=== PATIENT | male | born 1965 | race Caucasian/White ===

== ENCOUNTER 2017-10-03 23:19 | Emergency (ER) | payer OTHER, BC ==
[2017-10-03] MEDS ORDERED: Sodium Chloride 0.9% 10 ML Syringe FLUSH PRN (23:26)
[2017-10-03] MEDS ORDERED: oxyCODONE 5 MG Tab PO ONE (23:26)
[2017-10-03] MEDS ORDERED: Ondansetron 4 MG/2 ML SDV IVPUSH ONE (23:29)
[2017-10-03] MEDS ORDERED: Sodium Chloride 0.9% 1,000 ML IV SCH (23:45)
--- NOTE | 2017-10-04 00:30 | EDM.PDOC ---
ED HPI GENERAL MEDICAL PROBLEM - General Chief Complaint: Upper Extremity Injury/Pain Stated Complaint: INJURY TO SHOULDER FROM FALL Time Seen by Provider: 10/03/17 23:25 Source of Information: Reports: Patient History Limitations: Reports: No Limitations - History of Present Illness INITIAL COMMENTS - FREE TEXT/NARRATIVE: Patient is a 52 year old man who slipped and fell while opening his pickup door while getting into it just before coming to the ED. He has a lot of pain in his left shoulder and it hurts to touch or move it. His pain is bad enough that he is getting nauseated some. He has never injured this shoulder in the past. He has good function and sensation in his left arm and hand but he has 8/10 pain in the left shoulder. Onset: Today Onset Date: 10/03/17 Onset Time: 00:30 Duration: Minutes: (30), Constant Location: Reports: Upper Extremity, Left Quality: Reports: Ache, Throbbing Severity: Severe Improves with: Reports: Immobilization Worsens with: Reports: Movement Context: Reports: Trauma (Fell on ice and hit left shoulder on his truck door and the ground.) Associated Symptoms: Reports: Nausea/Vomiting - Related Data Allergies Allergy/AdvReac Type Severity Reaction Status Date / Time morphine Allergy Rash Verified 02/08/16 10:06 Home Meds: Home Meds Lisinopril [Lisinopril] 20 mg PO DAILY 04/04/15 [History] Pravastatin [Pravachol] 20 mg PO DAILY 04/04/15 [History] SitaGLIPtin [Januvia] 100 mg PO DAILY 04/04/15 [History] Cetirizine [ZyrTEC] 10 mg PO DAILY 02/08/16 [History] Lansoprazole [Prevacid 24Hr] 15 mg PO DAILY 02/08/16 [History] SitaGLIPtin [Januvia] 100 mg PO DAILY 02/08/16 [History] metFORMIN HCl [Metformin HCl] 1,000 mg PO BID 02/08/16 [History] oxyCODONE 5 mg PO DAILY 02/08/16 [History] Past Medical History HEENT History: Reports: Impaired Vision Cardiovascular History: Reports: Hypertension Gastrointestinal History: Reports: Other (See Below) Other Gastrointestinal History: Hx of chronic fistulas Endocrine/Metabolic History: Reports: Diabetes, Type II - Infectious Disease History Infectious Disease History: Reports: Chicken Pox - Past Surgical History Head Surgeries/Procedures: Reports: None Endocrine Surgical History: Reports: None Social & Family History - Family History Family Medical History: Noncontributory - Tobacco Use Smoking Status *Q: Never Smoker - Recreational Drug Use Recreational Drug Use: No - Living Situation & Occupation Living situation: Reports: Occupation: Employed Review of Systems - Review of Systems Review Of Systems: See Below Constitutional: Reports: No Symptoms Eyes: Reports: No Symptoms Ears: Reports: No Symptoms Nose: Reports: No Symptoms Mouth/Throat: Reports: No Symptoms Respiratory: Reports: No Symptoms Cardiovascular: Reports: No Symptoms GI/Abdominal: Reports: Nausea Genitourinary: Reports: No Symptoms Musculoskeletal: Reports: Shoulder Pain (Left ) Skin: Reports: No Symptoms Neurological: Reports: No Symptoms Psychiatric: Reports: No Symptoms ED EXAM, GENERAL - Physical Exam Exam: See Below Exam Limited By: No Limitations General Appearance: Alert, WD/WN, No Apparent Distress Eye Exam: Bilateral Eye: EOMI, Normal Fundi, Normal Inspection, PERRL Ears: Normal External Exam, Normal Canal, Hearing Grossly Normal, Normal TMs Ear Exam: Bilateral Ear: Auricle Normal, Canal Normal, TM normal Nose: Normal Inspection, Normal Mucosa, No Blood Throat/Mouth: Normal Inspection, Normal Lips, Normal Teeth, Normal Gums, Normal Oropharynx, Normal Voice, No Airway Compromise Head: Atraumatic, Normocephalic Neck: Normal Inspection, Supple, Non-Tender, Full Range of Motion Respiratory/Chest: No Respiratory Distress, Lungs Clear, Normal Breath Sounds, No Accessory Muscle Use, Chest Non-Tender Cardiovascular: Normal Peripheral Pulses, Regular Rate, Rhythm, No Edema, No Gallop, No JVD, No Murmur, No Rub Peripheral Pulses: 4+: Radial (L), Radial (R) GI/Abdominal: Normal Bowel Sounds, Soft, Non-Tender, No Organomegaly, No Distention, No Abnormal Bruit, No Mass Back Exam: Normal Inspection, Full Range of Motion, NT Extremities: Normal Inspection, Arm Pain (Left shoulder and left upper arm are sore on palpation or ROM), Limited Range of Motion, Other (Left wrist and hand have normal sensation and normal pulses.) Neurological: Alert, Oriented, CN II-XII Intact, Normal Cognition, Normal Gait, Normal Reflexes, No Motor/Sensory Deficits Psychiatric: Normal Affect, Normal Mood Skin Exam: Warm, Dry, Intact, Normal Color, No Rash Lymphatic: No Adenopathy Course - Vital Signs Text/Narrative:: Uneventful ED course. He was given Oxycodone 10 mg and his pain dropped down to a 1/10 level as long as he was holding the shoulder motionless. His left shoulder x-ray was read by the radiologist as having not dislocation or fracture. He will be put into a shoulder sling and will continue to take his oxycodone for pain. He will ice it and keep the shoulder in the sling and will see Dr. Acosta on Friday to see if he needs an MRI or orthopedic consultation. - Orders/Labs/Meds Orders: Active Orders 24 hr Category Date Time Status Shoulder Comp Lt [CR] Stat Exams 10/03/17 23:25 Taken Sodium Chloride 0.9% [Normal Saline] 1,000 ml Med 10/03/17 23:45 Active IV ASDIRECTED Sodium Chloride 0.9% [Saline Flush] Med 10/03/17 23:26 Active 10 ml FLUSH ASDIRECTED PRN Saline Lock Insert [OM.PC] Routine Oth 10/03/17 23:26 Ordered Medication Orders Sodium Chloride (Normal Saline) 1,000 mls @ 0 mls/hr IV ASDIRECTED ARNAUD PRN Reason: KVO Sodium Chloride (Saline Flush) 10 ml FLUSH ASDIRECTED PRN PRN Reason: Keep Vein Open Labs: Laboratory Tests 10/03/17 10/03/17 Range/Units 23:30 23:30 WBC 7.5 (4.0-11.0) K/uL RBC 5.31 (4.50-6.50) M/uL Hgb 15.0 (13.0-18.0) g/dL Hct 43.5 (40.0-54.0) % MCV 82 (76-96) fL MCH 28.2 (27.0-32.0) pg MCHC 34.5 (31.0-35.0) g/dL RDW 13.2 (11.0-16.0) % Plt Count 185 (150-400) K/uL MPV 10.2 H (6.0-10.0) fL Neut % (Auto) 64.4 (45.0-70.0) % Lymph % (Auto) 24.9 (20.0-40.0) % [place] % (Auto) 8.9 (3.0-10.0) % Eos % (Auto) 1.5 (1.0-5.0) % Baso % (Auto) 0.3 (0.0-0.5) % Neut # (Auto) 4.85 (2.00-7.50) K/uL Lymph # (Auto) 1.87 (1.50-4.00) K/uL [place] # (Auto) 0.67 (0.20-0.80) K/uL Eos # (Auto) 0.11 (0.04-0.40) K/uL Baso # (Auto) 0.02 (0.02-0.10) K/uL Sodium 137 (136-145) mmol/L Potassium 4.1 (3.5-5.1) mmol/L Chloride 102 (98-107) mmol/L Carbon Dioxide 24.2 (21.0-32.0) mmol/L Anion Gap 14.9 (5.0-15.0) mmol/L BUN 16 (8-26) mg/dL Creatinine 1.12 (0.70-1.30) mg/dL Est Cr Clr Drug Dosing TNP Estimated GFR (MDRD) > 60 (>60) MLS/MIN BUN/Creatinine Ratio 14.3 (6-25) Glucose 329 H D (74-100) mg/dL Calcium 8.7 (8.5-10.1) mg/dL Total Bilirubin 0.3 D (0.0-1.0) mg/dL AST 9 L (15-37) U/L ALT 30 (12-78) U/L Alkaline Phosphatase 94 (46-116) U/L Total Protein 7.3 (6.4-8.2) g/dL Albumin 3.7 (3.4-5.0) g/dL Globulin 3.6 (2.2-4.2) g/dL Albumin/Globulin Ratio 1.0 (0.8-2.0) Meds: Medications Generic Name Dose Route Start Last Admin Trade Name Freq PRN Reason Stop Dose Admin Sodium Chloride 1,000 mls @ 0 mls/hr 10/03/17 23:45 Normal Saline IV ASDIRECTED ARNAUD KVO Sodium Chloride 10 ml 10/03/17 23:26 Saline Flush FLUSH ASDIRECTED PRN Keep Vein Open Discontinued Medications Generic Name Dose Route Start Last Admin Trade Name Clarissa PRN Reason Stop Dose Admin Ondansetron HCl 4 mg 10/03/17 23:29 Zofran IVPUSH 10/03/17 23:30 ONETIME ONE Oxycodone HCl 10 mg 10/03/17 23:26 10/03/17 23:37 Oxycodone PO 10/03/17 23:27 10 mg ONETIME ONE Administration Departure - Departure Time of Disposition: 00:39 Disposition: Home, Self-Care 01 Condition: Good Clinical Impression: Contusion of left shoulder, initial encounter - Discharge Information - My Orders Last 24 Hours: My Active Orders 10/03/17 23:25 Shoulder Comp Lt [CR] Stat 10/03/17 23:26 Sodium Chloride 0.9% [Saline Flush] 10 ml FLUSH ASDIRECTED PRN Saline Lock Insert [OM.PC] Routine 10/03/17 23:45 Sodium Chloride 0.9% [Normal Saline] 1,000 ml IV ASDIRECTED - Assessment/Plan Last 24 Hours: My Active Orders 10/03/17 23:25 Shoulder Comp Lt [CR] Stat 10/03/17 23:26 Sodium Chloride 0.9% [Saline Flush] 10 ml FLUSH ASDIRECTED PRN Saline Lock Insert [OM.PC] Routine 10/03/17 23:45 Sodium Chloride 0.9% [Normal Saline] 1,000 ml IV ASDIRECTED
--- NOTE | 2017-10-05 02:53 | CR ---
LEFT SHOULDER, 10/03/17 There is mild diffuse osteopenia. There are mild osteoarthritic changes of the AC joint. No acute fracture or dislocation. No lytic or blastic bone lesions. [id number] [facility]
== END 2017-10-04 00:20 | disposition home or self-care (01) ==
LOC: LB.ED 23:19
DX: S40.012A Contusion of left shoulder, initial encounter (principal); I10 Essential (primary) hypertension; E11.9 Type 2 diabetes mellitus without complications; Z79.84 Long term (current) use of oral hypoglycemic drugs; Z79.899 Other long term (current) drug therapy; Z88.5 Allergy status to narcotic agent; W00.0XXA Fall on same level due to ice and snow, initial encounter
CPT/HCPCS: 36415; 73030-LT; 80053; 85025; 96374; 99284-25; A9270-GY

== ENCOUNTER 2021-01-18 10:40 | Emergency (ER) | payer BC ==
--- NOTE | 2021-01-18 11:37 | EDM.PDOC ---
ED HPI GENERAL MEDICAL PROBLEM - General Chief Complaint: General Stated Complaint: COVID SYMPTOMS Time Seen by Provider: 01/18/21 11:30 Source of Information: Reports: Patient History Limitations: Reports: No Limitations - History of Present Illness INITIAL COMMENTS - FREE TEXT/NARRATIVE: patient presented to the ER for a covid test. Reports cough and chills for several days. His tested positive for COVID 2 weeks ago. Main symptoms are chills and exertional dyspnea. Otherwise, reports that he does well when he is resting. Also reports loss of sense of taste for week - but he got it back yesterday. h/o DM and HTN Onset: Gradual Duration: Week(s): (1) - Related Data Allergies Allergy/AdvReac Type Severity Reaction Status Date / Time morphine Allergy Rash Verified 01/18/21 12:14 Home Meds: Home Meds Lisinopril 10 mg PO DAILY 04/04/15 [History] Cetirizine [ZyrTEC] 10 mg PO DAILY 02/08/16 [History] Lansoprazole [Prevacid 24Hr] 15 mg PO DAILY 02/08/16 [History] metFORMIN HCl [Metformin HCl] 5,000 mg PO DAILY 02/08/16 [History] Albuterol [Proventil Neb Soln] 2.5 mg NEB Q6HR PRN #30 neb 01/18/21 [Rx] Ascorbate Calcium [Vitamin C] 500 mg PO DAILY #14 tablet 01/18/21 [Rx] Cholecalciferol (Vitamin D3) [Vitamin D] 5,000 unit PO DAILY #14 tablet 01/18/21 [Rx] Insulin Aspart [NovoLOG] 15 unit SQ WITHMEALSANDBED 01/18/21 [History] Insulin Glargine,Hum.Rec.Anlog [Lantus Solostar] 25 unit SQ BEDTIME 01/18/21 [History] Metoprolol Tartrate 5 mg PO DAILY 01/18/21 [History] atorvaSTATin [Lipitor] 20 mg PO BEDTIME 01/18/21 [History] Past Medical History HEENT History: Reports: Impaired Vision Cardiovascular History: Reports: Hypertension Gastrointestinal History: Reports: Other (See Below) Other Gastrointestinal History: Hx of chronic fistulas Musculoskeletal History: Reports: Other (See Below) Other Musculoskeletal History: Pelvis and hip fracture due to crush injury at age 18. Endocrine/Metabolic History: Reports: Diabetes, Type II - Infectious Disease History Infectious Disease History: Reports: Chicken Pox - Past Surgical History Head Surgeries/Procedures: Reports: None Endocrine Surgical History: Reports: None Musculoskeletal Surgical History: Reports: Shoulder Surgery, Other (See Below) Other Musculoskeletal Surgeries/Procedures:: Left RTC repair 01/30/18. Right RTC repair 01/2020 Social & Family History - Family History Family Medical History: No Pertinent Family History - Living Situation & Occupation Living situation: Reports: Occupation: Employed ED ROS GENERAL - Review of Systems Review Of Systems: See Below Constitutional: Reports: Chills, Malaise HEENT: Reports: No Symptoms Respiratory: Reports: Shortness of Breath Cardiovascular: Denies: Chest Pain GI/Abdominal: Reports: No Symptoms : Reports: No Symptoms Musculoskeletal: Reports: No Symptoms Skin: Reports: No Symptoms Neurological: Reports: No Symptoms ED EXAM, GENERAL - Physical Exam Exam: See Below Exam Limited By: No Limitations General Appearance: Alert, WD/WN, No Apparent Distress Eye Exam: Bilateral Eye: EOMI Respiratory/Chest: No Respiratory Distress, No Accessory Muscle Use, Chest Non- Tender, Other (mild b/l scattered end exp wheexes) Cardiovascular: Normal Peripheral Pulses, Regular Rate, Rhythm Extremities: Normal Inspection Neurological: Alert, Oriented, No Motor/Sensory Deficits Course - Vital Signs Last Recorded V/S: Last Vital Signs Temp 37.1 C 01/18/21 11:00 Pulse 95 01/18/21 11:00 Resp 20 01/18/21 11:00 BP 137/92 H 01/18/21 11:00 Pulse Ox 99 01/18/21 11:00 - Orders/Labs/Meds Orders: Active Orders 24 hr Category Date Time Status RT Aerosol Therapy [RC] ASDIRECTED Care 01/18/21 12:38 Active Chest 1V Frontal [CR] Stat Exams 01/18/21 11:38 Taken Labs: Laboratory Tests 01/18/21 01/18/21 01/18/21 Range/Units 10:55 12:00 12:00 WBC 7.1 (4.0-11.0) K/uL RBC 5.88 (4.50-6.50) M/uL Hgb 16.8 (13.0-18.0) g/dL Hct 48.8 (40.0-54.0) % MCV 83 (76-96) fL MCH 28.6 (27.0-32.0) pg MCHC 34.4 (31.0-35.0) g/dL RDW 13.7 (11.0-16.0) % Plt Count 215 D (150-400) K/uL MPV 10.2 H (6.0-10.0) fL Neut % (Auto) 66.7 (45.0-70.0) % Lymph % (Auto) 19.3 L (20.0-40.0) % [place] % (Auto) 13.2 H (3.0-10.0) % Eos % (Auto) 0.7 L (1.0-5.0) % Baso % (Auto) 0.1 (0.0-0.5) % Neut # (Auto) 4.71 (2.00-7.50) K/uL Lymph # (Auto) 1.36 L (1.50-4.00) K/uL [place] # (Auto) 0.93 H (0.20-0.80) K/uL Eos # (Auto) 0.05 (0.04-0.40) K/uL Baso # (Auto) 0.01 L (0.02-0.10) K/uL ESR 18 (0-20) mm/hr Sodium 139 (136-145) mmol/L Potassium 4.4 (3.5-5.1) mmol/L Chloride 101 (98-107) mmol/L Carbon Dioxide 26.7 (21.0-32.0) mmol/L Anion Gap 15.7 H (5.0-15.0) mmol/L BUN 13 (8-26) mg/dL Creatinine 0.88 (0.70-1.30) mg/dL Est Cr Clr Drug Dosing 110.27 mL/min Estimated GFR (MDRD) > 60 (>60) MLS/MIN BUN/Creatinine Ratio 14.8 (6-25) Glucose 140 H D (74-100) mg/dL Calcium 8.9 (8.5-10.1) mg/dL Total Bilirubin 0.4 (0.0-1.0) mg/dL AST 27 (15-37) U/L ALT 36 (12-78) U/L Alkaline Phosphatase 109 (46-116) U/L Total Protein 7.9 (6.4-8.2) g/dL Albumin 3.6 (3.4-5.0) g/dL Globulin 4.3 H (2.2-4.2) g/dL Albumin/Globulin Ratio 0.8 (0.8-2.0) SARS-CoV-2 RNA (MAR[facility]) Positive H (NEGATIVE) Meds: Medications Discontinued Medications Generic Name Dose Route Start Last Admin Trade Name Freq PRN Reason Stop Dose Admin Albuterol/Ipratropium 3 ml 01/18/21 12:37 01/18/21 12:52 Albuterol/Ipratropium 3.0-0.5 Mg/3 Ml Neb Soln NEB 01/18/21 12:38 3 ml NOW STA Administration - Re-Assessments/Exams Free Text/Narrative Re-Assessment/Exam: patient is sating 99% on RA, no e/o resp distress. no fever. labs were ordered - no leukocytosis, normal CMP. CXR - mild perihilar congestion. R>L. DuoNeb was given - patient reports that it helped significantly with his chest congestion and breathing. 01/18/21 13:52 given that no e/o hypoxia, and due to normal labs -- decision to try an outpatient therapy patient will be d/cd home on a neb machine and oximeter. Departure - Departure Time of Disposition: 13:30 Disposition: Home, Self-Care 01 Condition: Good Clinical Impression: Upper respiratory tract infection due to COVID-19 virus - Discharge Information *PRESCRIPTION DRUG MONITORING PROGRAM REVIEWED*: Not Applicable *COPY OF PRESCRIPTION DRUG MONITORING REPORT IN PATIENT KACEY: Not Applicable Prescriptions: Albuterol [Proventil Neb Soln] 2.5 mg NEB Q6HR PRN #30 neb PRN Reason: Shortness Of Breath Ascorbate Calcium [Vitamin C] 500 mg PO DAILY #14 tablet Cholecalciferol (Vitamin D3) [Vitamin D] 5,000 unit PO DAILY #14 tablet Instructions: COVID-19 Frequently Asked Questions, Prone Position Therapy, COVID-19, 10 Things You Can Do to Manage Your COVID-19 Symptoms at Home - CDC, COVID-19: Quarantine vs. Isolation - CDC Referrals: PCP,None [Primary Care Provider] - Forms: ED Department Discharge Additional Instructions: - start using the neb treatment as prescribed - every 4-6 hrs as needed for Shortness of breath - check your O2 level at home using the provided oximeter ( call the ER/911 if the number is less than 92% ) - start taking vitamin C and D, to help boost your immune system - increase fluids intake - home isolation for 10 days - return to the ER if symptoms got worse or any concerns - follow up with your PCP as needed in 2-4 weeks for a checkup Sepsis Event Note (ED) - Focused Exam Vital Signs: Vital Signs Temp Pulse Resp BP Pulse Ox 01/18/21 11:00 37.1 C 95 20 137/92 H 99 - Problem List & Annotations (1) Upper respiratory tract infection due to COVID-19 virus SNOMED Code(s): 6996221072450116 Code(s): U07.1 - COVID-19; J06.9 - ACUTE UPPER RESPIRATORY INFECTION, UNSPECIFIED Status: Acute Priority: Medium Current Visit: Yes - Problem List Review Problem List Initiated/Reviewed/Updated: Yes - My Orders Last 24 Hours: My Active Orders 01/18/21 11:38 Chest 1V Frontal [CR] Stat 01/18/21 12:38 RT Aerosol Therapy [RC] ASDIRECTED - Assessment/Plan Last 24 Hours: My Active Orders 01/18/21 11:38 Chest 1V Frontal [CR] Stat 01/18/21 12:38 RT Aerosol Therapy [RC] ASDIRECTED Plan: - start using the neb treatment as prescribed - every 4-6 hrs as needed for Shortness of breath - check your O2 sat at home using the provided Oximeter - start taking vitamin C and D, to help boost your immune system - increase fluids intake - home isolation for 10 days - return to the ER if symptoms got worse or any concerns - follow up with your PCP as needed in 2-4 weeks for a checkup
[2021-01-18 12:13] VITALS: PULSE 95
[2021-01-18] MEDS ORDERED: Albuterol/Ipratropium 3.0-0.5 MG/3 ML Neb Soln NEB STA (12:37)
[2021-01-18 14:58] VITALS: BP 137/95
--- NOTE | 2021-01-18 15:24 | CR ---
DATE OF SERVICE: 01/18/2021 CLINICAL DATA: SOB/COVID+ AP CHEST: Comparison is made to a prior exam dated 01/20/2006. The patient is status post median sternotomy. The heart size is normal. The lungs are clear. No pneumothorax. No pleural effusions. No evidence of acute intrathoracic disease. [id number] [facility]
== END 2021-01-18 13:45 | disposition home or self-care (01) ==
LOC: LB.ED 10:40
DX: U07.1 COVID-19 (principal); J06.9 Acute upper respiratory infection, unspecified; E11.9 Type 2 diabetes mellitus without complications; I10 Essential (primary) hypertension; Z88.6 Allergy status to analgesic agent; Z79.4 Long term (current) use of insulin; Z79.899 Other long term (current) drug therapy
CPT/HCPCS: 36415; 71045; 80053; 85025; 85651; 99284; 99285-25; J7620-GY; U0002

== ENCOUNTER 2021-09-24 10:03 | Emergency (ER) | payer BC ==
[2021-09-24 10:37] VITALS: BP 157/105; PULSE 86
[2021-09-24] MEDS: Ketorolac 30 MG/ML SDV IM ONE (10:59)
[2021-09-24] MEDS: Ketorolac 30 MG/ML SDV ONE (10:59)
== END 2021-09-24 11:36 | disposition home or self-care (01) ==
LOC: LB.ED 10:03
DX: M54.6 Pain in thoracic spine (principal); I10 Essential (primary) hypertension; E11.9 Type 2 diabetes mellitus without complications; Z88.5 Allergy status to narcotic agent; Z91.018 Allergy to other foods; Z79.4 Long term (current) use of insulin; Z79.899 Other long term (current) drug therapy
CPT/HCPCS: 71101-LT; 96372; 99283; J1885

== ENCOUNTER 2024-09-03 08:26 | Emergency (ER) | payer OTHER ==
[2024-09-03 09:07] LABS: BASOPHILS ABSOLUTE AUTO 0.02 K/uL (0.02-0.10); BASOPHILS PERCENT AUTO 0.2 % (0.0-0.5); EOSINOPHILS ABSOLUTE AUTO 0.08 K/uL (0.04-0.40); HEMATOCRIT 45.5 % (40.0-54.0); HEMOGLOBIN 15.4 g/dL (13.0-18.0); LYMPHOCYTES ABSOLUTE AUTO 1.28 K/uL (1.50-4.00); LYMPHOCYTES PERCENT AUTO 15.3 % (20.0-40.0); MEAN CORPUSCULAR HEMOGLOBIN 27.6 pg (27.0-32.0); MEAN CORPUSCULAR HGB CONC 33.8 g/dL (31.0-35.0); MEAN CORPUSCULAR VOLUME 82 fL (76-96); MEAN PLATELET VOLUME 10.9 fL (6.0-10.0); MONOCYTES ABSOLUTE AUTO 0.66 K/uL (0.20-0.80); MONOCYTES PERCENT AUTO 7.9 % (3.0-10.0); NEUTROPHILS ABSOLUTE AUTO 6.31 K/uL (2.00-7.50); NEUTROPHILS PERCENT AUTO 75.6 % (45.0-70.0); PLATELET COUNT,PLT 210 K/uL (150-400); RED BLOOD CELL COUNT 5.57 M/uL (4.50-6.50); RED CELL DISTRIBUTION WIDTH 15.3 % (11.0-16.0); WHITE BLOOD CELL COUNT,WBC 8.4 K/uL (4.0-11.0)
[2024-09-03 09:17] LABS: ANION GAP 12.9 mmol/L (5.0-15.0); BUN/CREATININE RATIO 13.6 (6-25); CALCIUM 8.7 mg/dL (8.5-10.1); CARBON DIOXIDE,CO2 26.8 mmol/L (21.0-32.0); CREATININE 1.03 mg/dL (0.70-1.30); EST CRCL DRUG DOSING (CG) 92.29 mL/min; POTASSIUM,K 4.7 mmol/L (3.5-5.1)
[2024-09-03 09:26] LABS: MAGNESIUM 1.7 mg/dL (1.8-2.4); TROPONIN I HIGH SENSITIVITY 5.9 pg/ml (<=60.4)
[2024-09-03 11:12] VITALS: BP 142/94; PULSE 79
== END 2024-09-03 11:20 | disposition home or self-care (01) ==
LOC: LB.ED 08:26
DX: I49.5 Sick sinus syndrome (principal); I10 Essential (primary) hypertension; E78.00 Pure hypercholesterolemia, unspecified; K21.9 Gastro-esophageal reflux disease without esophagitis; I25.10 Atherosclerotic heart disease of native coronary artery without angina pectoris; E11.9 Type 2 diabetes mellitus without complications; E66.9 Obesity, unspecified; Z68.33 Body mass index [BMI] 33.0-33.9, adult; Z90.89 Acquired absence of other organs; Z87.891 Personal history of nicotine dependence; Z88.5 Allergy status to narcotic agent; Z91.018 Allergy to other foods; Z79.4 Long term (current) use of insulin; Z79.82 Long term (current) use of aspirin; Z79.899 Other long term (current) drug therapy
CPT/HCPCS: 36415; 80048; 83735; 84484; 85025; 93005; 93246; 99285

== ENCOUNTER 2025-01-31 08:41 | Day surgery (SDC) | payer OTHER ==
[~2025-01-31 08:41] MED LIST: Lactated Ringers 1,000 ML IV SCH
[2025-01-31] MEDS: Lactated Ringers 1,000 ML IV SCH (09:49)
[2025-01-31] MEDS: ceFAZolin 1 GM in Sodium Chloride 0.9% 50 ML IV ONE (10:36)
[2025-01-31] MEDS: ceFAZolin 1 GM Vial IV ONE (10:37)
[2025-01-31] MEDS ORDERED: Propofol 200 MG/20 ML SDV ONE (11:00)
[2025-01-31] MEDS ORDERED: fentaNYL 100 MCG/2 ML SDV ONE (11:00)
[2025-01-31] MEDS ORDERED: Midazolam 1 MG/ML 2 ML SDV ONE (11:00)
[2025-01-31 11:35] VITALS: PULSE 74
[2025-01-31] MEDS: Acetaminophen/HYDROcodone 325-5 MG Tab PO PRN (11:41)
[2025-01-31 11:49] VITALS: BP 188/90
== END 2025-01-31 12:26 | disposition home or self-care (01) ==
LOC: LB.SDS 08:41
PROVIDERS: ATTEND Orthopaedic Surgery
DX: M65.311 Trigger thumb, right thumb (principal); I10 Essential (primary) hypertension; E78.00 Pure hypercholesterolemia, unspecified; I25.10 Atherosclerotic heart disease of native coronary artery without angina pectoris; E11.9 Type 2 diabetes mellitus without complications; K21.9 Gastro-esophageal reflux disease without esophagitis; Z87.891 Personal history of nicotine dependence; Z79.84 Long term (current) use of oral hypoglycemic drugs; Z79.85 Long-term (current) use of injectable non-insulin antidiabetic drugs; Z79.82 Long term (current) use of aspirin; Z79.899 Other long term (current) drug therapy; Z88.5 Allergy status to narcotic agent
CPT/HCPCS: 82088; 82150; 82310; 82533; 82627; 82652; 82947; 83930; 83970; 84244; 84270; 84402; 84403; 84588; 86337; 86341; A9270-GY; J0690; J2250; J2704; J3010; J7120